=== PATIENT | female | born 1965 | race African-American/Black ===

== ENCOUNTER 2016-05-23 09:09 | Outpatient (CLI) | payer OTHER ==
--- NOTE | 2016-05-23 13:15 | DIAGNOSTIC IMAGING REPORT ---
PROCEDURE: MG BILATERAL SCREENING W/CAD INDICATION: SCREENING. Family history (maternal grandmother) TECHNIQUE: Bilateral CC and MLO digital views. COMPARISON: Mammograms 04/18/2014 and 05/16/2011. FINDINGS: Computer-aided detection applied. Mildly dense pattern. Right upper central breast postsurgical changes with several surgical clips and increasing scarring. Postradiation thickening of the skin. IMPRESSION: 1. Right breast postsurgical and postradiation changes without mammographic evidence of malignancy RESULT CODE: 2- Benign finding(s). A. A negative report should not delay biopsy if a dominant or clinically suspicious mass is present. 10-15% of cancers are not identified by x-ray. B. A negative report may reinforce clinical impression. C. Adenosis and dense breasts may obscure an underlying neoplasm. D. False positive reports average 6-10%. E.. A yearly screening mammogram is recommended. A reminder letter will be scheduled.
== END 2016-05-23 23:00 ==
LOC: MAM SRH 09:09
DX: Z12.31 Encounter for screening mammogram for malignant neoplasm of breast (principal)

== ENCOUNTER 2016-08-21 21:35 | Emergency (ER) | payer OTHER ==
--- NOTE | 2016-08-21 23:51 | DIAGNOSTIC IMAGING REPORT ---
PROCEDURE: XR LUMBAR SPINE 2 OR 3 VIEWS INDICATION: LOWER EXTERMITY TINGLING TECHNIQUE: Three views. COMPARISON: None. FINDINGS: Mild levoscoliosis and straightening of the lumbar spine suggestive of muscular spasm. Mild spur formation and mild narrowing of the L3-4 disc space. No fracture. No suspicious osseous lesions. Soft tissues are unremarkable. IMPRESSION: 1. Mild degenerative changes and L3-4 disc space narrowing 2. Mild levoscoliosis and loss of lordosis suggestive of muscular spasm.
--- NOTE | 2016-08-22 02:06 | ED ORDER SUMMARY ---
..... Patient: FAIZAN PONCE OrderSheet [facility] VisitID: [id number] [place] [address] 51y, F Registration Date/Time: 08/21/2016 ORDER SHEET Weight: 78.9 kg (stated) Allergies: No Known Drug Allergy GENERAL ORDERS: Lumbar Spine 2 or 3V Urgent (22:49 08/21/2016 Kathleen ALBERTO) (Ack 22:50 AMcQuoid ER Tech1) (23:18 MCampbell) UA-Culture if indicated Urgent (01:46 08/22/2016 HSoule per protocol) (Ack 1:53 AMcQuoid ER Tech1) (1:54 AMcQuoid ER Tech1) Urine Urgent (01:46 08/22/2016 HSoule per protocol) (Ack 1:53 AMcQuoid ER Tech1) (1:54 AMcQuoid ER Tech1) MEDICATION ORDERS: Toradol IM 60 mg (NOW) (02:04 08/22/2016 Kathleen ALBERTO) (Ack 2:10 JSanders R.N.) (2:23 JSanders R.N.) Dilaudid IM 1 mg (HIGH ALERT MEDICATION, NOW) (02:04 08/22/2016 Kathleen ALBERTO) (Ack 2:10 JSanders R.N.) (2:17 JSanders R.N.) IV FLUIDS: ORDER SHEET NOTES: [Electronically signed by Jodee Sauer R.N. (02:52 08/22/2016)] [Electronically signed by Mikael Freeman MD (08:35 08/28/2016)] [Electronically locked/signed by Jodee Sauer R.N. (02:52 08/22/2016)]
--- NOTE | 2016-08-22 02:06 | ED ORDER SUMMARY ---
..... Patient: FAIZAN PONCE OrderSheet [facility] VisitID: [id number] [place] [address] 51y, F Registration Date/Time: 08/21/2016 ORDER SHEET Weight: 78.9 kg (stated) Allergies: No Known Drug Allergy GENERAL ORDERS: Lumbar Spine 2 or 3V Urgent (22:49 08/21/2016 Kathleen ALBERTO) (Ack 22:50 AMcQuoid ER Tech1) (23:18 MCampbell) UA-Culture if indicated Urgent (01:46 08/22/2016 HSoule per protocol) (Ack 1:53 AMcQuoid ER Tech1) (1:54 AMcQuoid ER Tech1) Urine Urgent (01:46 08/22/2016 HSoule per protocol) (Ack 1:53 AMcQuoid ER Tech1) (1:54 AMcQuoid ER Tech1) MEDICATION ORDERS: Toradol IM 60 mg (NOW) (02:04 08/22/2016 Kathleen ALBERTO) (Ack 2:10 JSanders R.N.) (2:23 JSanders R.N.) Dilaudid IM 1 mg (HIGH ALERT MEDICATION, NOW) (02:04 08/22/2016 Kathleen ALBERTO) (Ack 2:10 JSanders R.N.) (2:17 JSanders R.N.) IV FLUIDS: ORDER SHEET NOTES: [Electronically signed by Jodee Sauer R.N. (02:52 08/22/2016)] [Electronically signed by Mikael Freeman MD (08:35 08/28/2016)] [Electronically locked/signed by Jodee Sauer R.N. (02:52 08/22/2016)]
--- NOTE | 2016-08-22 02:06 | ED NURSING NOTES ---
Clinical Report - Nurses [facility] [place] [address] 08/21/2016 21:36 Patient: FAIZAN PONCE TRIAGE Triage time 21:53 Aug 21 2016. Acuity: LEVEL 4. Chief Complaint: BACK PAIN and (Right flank pain). 22:02 08/21/16. SEPSIS SCREEN: Sepsis Screen. Negative (no infection suspected/documented). [place]LEY COMA SCORE: [place] Coma Scale: 15- eyes open spontaneously (4); best verbal response- oriented x 4 (5); best motor response- obeys commands (6). --22:02 Jodee Sauer R.N. 21:53 08/21/16. BP: 137/89 (regular adult cuff) taken on the left arm. HR: 89. RR: 18. O2 saturation: 99% on room air. Temp: 97.9 F (oral). Pain level now: 10/06. Additional comments: with movement 01/06. --22:02 Jodee Sauer R.N. 22:04 08/21/16. --22:04 Jodee Sauer R.N. Weight: 78.9 kg stated. Height/Length: 67 inches Per Patient. BMI: 27.3. --21:58 Jodee Sauer R.N. Medications BuPROPion HCl Oral 150 mg, 2x a day. --21:56 Jodee Sauer R.N. Cyclobenzaprine HCl Oral (Tablet 10 mg) 1/2 tablet, as needed. --21:57 Jodee Sauer R.N. Allergies No Known Drug Allergy. --21:57 Jodee Sauer R.N. History Arrived by private vehicle. Historian: patient. Accompanied by family. Primary physician (Dr Ruvalcaba). This started today. She has had numbness (radiating down right leg). She has had tingling, (down right leg). She has had trouble walking. No history of recent trauma. Occurred at home. Treatment SAMPLER RADIOACTIVE WASTE: (Cyclobenzaprine at 1900). PAST MEDICAL HX: Last normal menstrual period- 2002. SOCIAL HX: Never smoker. Occasional alcohol use; consumes wine. No drug use. No infectious disease exposure. ABUSE ASSESSMENT: No report of abuse. --22:02 Jodee Sauer R.N. ( Patient has a disabled daughter, she says she was making her daughters bed and she "tweeked" her back). --22:04 Jodee Sauer R.N. PROBLEMS: Fibromyalgia. Depression. Breast Cancer. --21:57 Jodee Sauer R.N. ADDITIONAL SURGERIES: Appendectomy. . Hysterectomy. Knee Surgery. Lumpectomy of breast. --21:58 Jodee Sauer R.N. Interventions ID band on patient. To treatment room. --22:02 Jodee Sauer R.N. PHYSICAL ASSESSMENT 22:03 08/21/16. To room via wheelchair. GENERAL / NEURO / PSYCH: Alert. Oriented X 4. Appears in no acute distress. RESPIRATORY: Respirations not labored. Chest nontender. Breath sounds within normal limits. CVS: Normal heart rate and rhythm. Capillary refill less than 2 seconds. GI / : Abdomen soft and nontender. Bowel sounds within normal limits. BACK: Normal inspection of the neck and back. Limited ROM of the back. --22:03 Jodee Sauer R.N. NURSING PROGRESS NOTES 22:08/21/16. The plan of care for this patient has been created. Head of bed elevated. Reassurance given. Two patient identifiers checked. Call light placed in reach. Side rails up x 2. Bed placed in lowest position. Brakes of bed on. Patient ready for evaluation- chart flagged and ED physician notified. --22:04 Jodee Sauer R.N. Patient transported to radiology by wheelchair with tech. (23:Aug 21 2016). --23:01 Jodee Sauer R.N. ( at bedside). --00:03 Jodee Sauer R.N. 00:03 08/22/16. BP: 136/79 (regular adult cuff) taken on the left arm. HR: 86. RR: 18. O2 saturation: 98% on room air. Pain level now: 10/06. --00:03 Jodee Sauer R.N. 00:03 08/22/16. ( Patient given warm blanket for comfort measures). --00:03 Jodee Sauer R.N. ( Patient up to restroom.). --00:59 Jodee Sauer R.N. 01:08/22/16. BP: 130/81 (regular adult cuff) taken on the left arm. HR: 83. RR: 18. O2 saturation: 99% on room air. Pain level now: 10/06. --01:28 Jodee Sauer R.N. 01:28 08/22/16. ( Patient still has pain, she is anxious to leave because they have a disabled daughter at home, they are afraid that she will wake up without them there and the caregiver will have a hard time with her. Physician notified). --01:28 Jodee Sauer R.N. 02:17 08/22/2016 Dilaudid (HYDROmorphone HCl PF) IM 1 mg given. Given in the left deltoid. Allergies verified, confirmed 5 rights and sedative warning given to the patient. --02:17 Jodee Sauer R.N. 02:23 08/22/2016 Toradol (Ketorolac Tromethamine) IM 60 mg given. Given in the left anterior lateral thigh. Allergies verified and confirmed 5 rights. --02:23 Jodee Sauer R.N. DISPOSITION / DISCHARGE 02:40 08/22/2016 Dilaudid IM Response: pain is improving. Symptoms have improved the patient feels better. --02:50 Jodee Sauer R.N. 02:40 08/22/2016 Toradol IM Response: no adverse reaction pain is improving. Symptoms have improved the patient feels better. --02:50 Jodee Sauer R.N. 02:52 08/22/16. Departure time: 02:45 Aug 22 2016. Condition at departure: improved. No learning barriers present. Discharge instructions provided and reviewed with the patient. Reviewed medication(s) side effects, precautions and dosing information. Prescription(s) given to the patient. Activity restrictions (light lifting, minimal use of injured extremity, no driving and rest) reviewed. Patient verbalized understanding. Written instructions provided in Yoruba. The patient was discharged by the physician. She was discharged home and accompanied by spouse. She left the Emergency Department in a wheelchair and via private vehicle. Spouse driving. --02:52 Jodee Sauer R.N. 02:49 08/22/16. BP: 145/90 (regular adult cuff) taken on the left arm. HR: 87. RR: 18 (regular and labored). O2 saturation: 99% on room air. Temp: 97.6 F (oral). Pain level now: 09/06. --02:52 Jodee Sauer R.N. Locked/Released at 08/22/2016 2:52 by Jodee Sauer R.N.
--- NOTE | 2016-08-22 02:06 | ED NURSING NOTES ---
Clinical Report - Nurses [facility] [place] [address] 08/21/2016 21:36 Patient: FAIZAN PONCE TRIAGE Triage time 21:53 Aug 21 2016. Acuity: LEVEL 4. Chief Complaint: BACK PAIN and (Right flank pain). 22:02 08/21/16. SEPSIS SCREEN: Sepsis Screen. Negative (no infection suspected/documented). PRESLEY COMA SCORE: [place] Coma Scale: 15- eyes open spontaneously (4); best verbal response- oriented x 4 (5); best motor response- obeys commands (6). --22:02 oJdee Sauer R.N. 21:53 08/21/16. BP: 137/89 (regular adult cuff) taken on the left arm. HR: 89. RR: 18. O2 saturation: 99% on room air. Temp: 97.9 F (oral). Pain level now: 10/06. Additional comments: with movement 01/06. --22:02 Jodee Sauer R.N. 22:04 08/21/16. --22:04 Jodee Sauer R.N. Weight: 78.9 kg stated. Height/Length: 67 inches Per Patient. BMI: 27.3. --21:58 Jodee Sauer R.N. Medications BuPROPion HCl Oral 150 mg, 2x a day. --21:56 Jodee Sauer R.N. Cyclobenzaprine HCl Oral (Tablet 10 mg) 1/2 tablet, as needed. --21:57 Jodee Suaer R.N. Allergies No Known Drug Allergy. --21:57 Jodee Sauer R.N. History Arrived by private vehicle. Historian: patient. Accompanied by family. Primary physician (Dr Ruvalcaba). This started today. She has had numbness (radiating down right leg). She has had tingling, (down right leg). She has had trouble walking. No history of recent trauma. Occurred at home. Treatment BAIL AGENT: (Cyclobenzaprine at 1900). PAST MEDICAL HX: Last normal menstrual period- 2002. SOCIAL HX: Never smoker. Occasional alcohol use; consumes wine. No drug use. No infectious disease exposure. ABUSE ASSESSMENT: No report of abuse. --22:02 Jodee Sauer R.N. ( Patient has a disabled daughter, she says she was making her daughters bed and she "tweeked" her back). --22:04 Jodee Sauer R.N. PROBLEMS: Fibromyalgia. Depression. Breast Cancer. --21:57 Jodee Sauer R.N. ADDITIONAL SURGERIES: Appendectomy. . Hysterectomy. Knee Surgery. Lumpectomy of breast. --21:58 Jodee Sauer R.N. Interventions ID band on patient. To treatment room. --22:02 Jodee Sauer R.N. PHYSICAL ASSESSMENT 22:03 08/21/16. To room via wheelchair. GENERAL / NEURO / PSYCH: Alert. Oriented X 4. Appears in no acute distress. RESPIRATORY: Respirations not labored. Chest nontender. Breath sounds within normal limits. CVS: Normal heart rate and rhythm. Capillary refill less than 2 seconds. GI / : Abdomen soft and nontender. Bowel sounds within normal limits. BACK: Normal inspection of the neck and back. Limited ROM of the back. --22:03 Jodee Sauer R.N. NURSING PROGRESS NOTES 22:08/21/16. The plan of care for this patient has been created. Head of bed elevated. Reassurance given. Two patient identifiers checked. Call light placed in reach. Side rails up x 2. Bed placed in lowest position. Brakes of bed on. Patient ready for evaluation- chart flagged and ED physician notified. --22:04 Jodee Sauer R.N. Patient transported to radiology by wheelchair with tech. (23:Aug 21 2016). --23:01 Jodee Sauer R.N. ( at bedside). --00:03 Jodee Sauer R.N. 00:03 08/22/16. BP: 136/79 (regular adult cuff) taken on the left arm. HR: 86. RR: 18. O2 saturation: 98% on room air. Pain level now: 10/06. --00:03 Jodee Sauer R.N. 00:03 08/22/16. ( Patient given warm blanket for comfort measures). --00:03 Jodee Sauer R.N. ( Patient up to restroom.). --00:59 Jodee Sauer R.N. 01:08/22/16. BP: 130/81 (regular adult cuff) taken on the left arm. HR: 83. RR: 18. O2 saturation: 99% on room air. Pain level now: 10/06. --01:28 Jodee Sauer R.N. 01:28 08/22/16. ( Patient still has pain, she is anxious to leave because they have a disabled daughter at home, they are afraid that she will wake up without them there and the caregiver will have a hard time with her. Physician notified). --01:28 Jodee Sauer R.N. 02:17 08/22/2016 Dilaudid (HYDROmorphone HCl PF) IM 1 mg given. Given in the left deltoid. Allergies verified, confirmed 5 rights and sedative warning given to the patient. --02:17 Jodee Sauer R.N. 02:23 08/22/2016 Toradol (Ketorolac Tromethamine) IM 60 mg given. Given in the left anterior lateral thigh. Allergies verified and confirmed 5 rights. --02:23 Jodee Sauer R.N. DISPOSITION / DISCHARGE 02:40 08/22/2016 Dilaudid IM Response: pain is improving. Symptoms have improved the patient feels better. --02:50 Jodee Sauer R.N. 02:40 08/22/2016 Toradol IM Response: no adverse reaction pain is improving. Symptoms have improved the patient feels better. --02:50 Jodee Sauer R.N. 02:52 08/22/16. Departure time: 02:45 Aug 22 2016. Condition at departure: improved. No learning barriers present. Discharge instructions provided and reviewed with the patient. Reviewed medication(s) side effects, precautions and dosing information. Prescription(s) given to the patient. Activity restrictions (light lifting, minimal use of injured extremity, no driving and rest) reviewed. Patient verbalized understanding. Written instructions provided in Slovak. The patient was discharged by the physician. She was discharged home and accompanied by spouse. She left the Emergency Department in a wheelchair and via private vehicle. Spouse driving. --02:52 Jodee Sauer R.N. 02:49 08/22/16. BP: 145/90 (regular adult cuff) taken on the left arm. HR: 87. RR: 18 (regular and labored). O2 saturation: 99% on room air. Temp: 97.6 F (oral). Pain level now: 09/06. --02:52 Jodee Sauer R.N. Locked/Released at 08/22/2016 2:52 by Jodee Sauer R.N.
--- NOTE | 2016-08-22 02:06 | ED CLINICAL REPORT ---
Clinical Report - Physicians/Mid Levels [facility] [address] [place] [address] 08/21/2016 21:36 Patient: FAIZAN PONCE Time Seen: 22:34. Arrived- By private vehicle. Historian- patient. HISTORY OF PRESENT ILLNESS Chief Complaint: BACK PAIN. It is described as being severe and in the area of the lower lumbar spine and radiating to the right lower extremity. The quality is noted to be aching and "pain". Onset was yesterday and it is still present. It was abrupt in onset and has been constant. No bladder dysfunction, bowel dysfunction, sensory loss or motor loss. Patient notes the possibility of an injury. Mechanism of injury- (he has a disabled daughter. She may have injured her back while assisting her child in bed.). No other injury. REVIEW OF SYSTEMS No chills, fever, sweats, calf pain or chest pain. No cough, difficulty breathing, pedal edema, palpitations or abdominal pain. No constipation, diarrhea, nausea, vomiting or urinary problems. All systems otherwise negative, except as recorded above. PAST HISTORY Problems: Crush Injury, Lower Extremity. Lymphedema. Fibromyalgia. Depression. Breast Cancer. Additional Surgeries: Appendectomy. . Hysterectomy. Knee Surgery. Lumpectomy of breast. Medications: Cyclobenzaprine HCl Oral (Tablet 10 mg) 1/2 tablet, as needed. BuPROPion HCl Oral 150 mg, 2x a day. Allergies: No Known Drug Allergy. SOCIAL HISTORY Never smoker. Occasional alcohol use; consumes wine by the glass. No drug use. FAMILY HISTORY No significant family medical history. ADDITIONAL NOTES The nursing notes have been reviewed. PHYSICAL EXAM Vital Signs: 08/21/2016 21:53 BP: 137/89. HR: 89. RR: 18. O2 saturation: 99%. Temp: 97.9 F. Pain level now: 7/10. Have been reviewed. Appearance: Alert. ENT: Pharynx normal. Neck: Normal inspection. Painless ROM. CVS: Heart sounds normal. Respiratory: No respiratory distress. Breath sounds normal. Abdomen: No visible injury. Soft and nontender. Bowel sounds normal. No organomegaly. No mass. Back: Severely limited ROM in the back- in the lumbar spine: decreased flexion, extension, right lateral bending, left lateral bending and rotation to the right and left. Skin: Skin warm and dry. Normal skin color. Normal skin turgor. Extremities: Extremities exhibit normal ROM. No calf tenderness. Neuro: No motor deficit. No sensory deficit. LABS, X-RAYS, AND EKG LS-Spine X-rays: (IMPRESSION: 1. Mild degenerative changes and L3-4 disc space narrowing 2. Mild levoscoliosis and loss of lordosis suggestive of muscular spasm.). The X-rays were interpreted by the radiologist and contemporaneously by me. PROGRESS AND PROCEDURES Course of Care: Patient is stable. Patient/family counseled. Old medical records reviewed. Disposition: Discharged. Condition: stable. CLINICAL IMPRESSION Acute lumbar back pain associated with muscle strain. Acute right sided sciatica. INSTRUCTIONS Apply ice for 20 minutes four times a day until better. Don't apply ice directly to skin and don't use while asleep. No driving or operating machinery while taking medication. Sedative medication was given during your visit. No lifting greater than 5 lbs, no bending or stooping or no prolonged sitting. No strenuous activity. Warnings: GENERAL WARNINGS: Return or contact your physician immediately if your condition worsens or changes unexpectedly, if not improving as expected, or if other problems arise. Prescription Medications: Hydrocodone/APAP 5mg/325mg: take 1 to 2 orally every 6 hours as needed for pain. Dispense fifteen (15). No refills. Understanding of the discharge instructions verbalized by patient. Follow-up with: Jose Juan Oshea MD, [facility][1], , [facility], [address] [place] [address] Follow up today. Call for the next available appointment. (Electronically signed by Mikael Freeman MD 08/28/2016 8:35)
--- NOTE | 2016-08-22 02:06 | ED CLINICAL REPORT ---
Clinical Report - Physicians/Mid Levels [facility] [address] [place] [address] 08/21/2016 21:36 Patient: FAIZAN PONCE Time Seen: 22:34. Arrived- By private vehicle. Historian- patient. HISTORY OF PRESENT ILLNESS Chief Complaint: BACK PAIN. It is described as being severe and in the area of the lower lumbar spine and radiating to the right lower extremity. The quality is noted to be aching and "pain". Onset was yesterday and it is still present. It was abrupt in onset and has been constant. No bladder dysfunction, bowel dysfunction, sensory loss or motor loss. Patient notes the possibility of an injury. Mechanism of injury- (he has a disabled daughter. She may have injured her back while assisting her child in bed.). No other injury. REVIEW OF SYSTEMS No chills, fever, sweats, calf pain or chest pain. No cough, difficulty breathing, pedal edema, palpitations or abdominal pain. No constipation, diarrhea, nausea, vomiting or urinary problems. All systems otherwise negative, except as recorded above. PAST HISTORY Problems: Crush Injury, Lower Extremity. Lymphedema. Fibromyalgia. Depression. Breast Cancer. Additional Surgeries: Appendectomy. . Hysterectomy. Knee Surgery. Lumpectomy of breast. Medications: Cyclobenzaprine HCl Oral (Tablet 10 mg) 1/2 tablet, as needed. BuPROPion HCl Oral 150 mg, 2x a day. Allergies: No Known Drug Allergy. SOCIAL HISTORY Never smoker. Occasional alcohol use; consumes wine by the glass. No drug use. FAMILY HISTORY No significant family medical history. ADDITIONAL NOTES The nursing notes have been reviewed. PHYSICAL EXAM Vital Signs: 08/21/2016 21:53 BP: 137/89. HR: 89. RR: 18. O2 saturation: 99%. Temp: 97.9 F. Pain level now: 7/10. Have been reviewed. Appearance: Alert. ENT: Pharynx normal. Neck: Normal inspection. Painless ROM. CVS: Heart sounds normal. Respiratory: No respiratory distress. Breath sounds normal. Abdomen: No visible injury. Soft and nontender. Bowel sounds normal. No organomegaly. No mass. Back: Severely limited ROM in the back- in the lumbar spine: decreased flexion, extension, right lateral bending, left lateral bending and rotation to the right and left. Skin: Skin warm and dry. Normal skin color. Normal skin turgor. Extremities: Extremities exhibit normal ROM. No calf tenderness. Neuro: No motor deficit. No sensory deficit. LABS, X-RAYS, AND EKG LS-Spine X-rays: (IMPRESSION: 1. Mild degenerative changes and L3-4 disc space narrowing 2. Mild levoscoliosis and loss of lordosis suggestive of muscular spasm.). The X-rays were interpreted by the radiologist and contemporaneously by me. PROGRESS AND PROCEDURES Course of Care: Patient is stable. Patient/family counseled. Old medical records reviewed. Disposition: Discharged. Condition: stable. CLINICAL IMPRESSION Acute lumbar back pain associated with muscle strain. Acute right sided sciatica. INSTRUCTIONS Apply ice for 20 minutes four times a day until better. Don't apply ice directly to skin and don't use while asleep. No driving or operating machinery while taking medication. Sedative medication was given during your visit. No lifting greater than 5 lbs, no bending or stooping or no prolonged sitting. No strenuous activity. Warnings: GENERAL WARNINGS: Return or contact your physician immediately if your condition worsens or changes unexpectedly, if not improving as expected, or if other problems arise. Prescription Medications: Hydrocodone/APAP 5mg/325mg: take 1 to 2 orally every 6 hours as needed for pain. Dispense fifteen (15). No refills. Understanding of the discharge instructions verbalized by patient. Follow-up with: Jose Juan Oshea MD, [facility], , [facility], [address] [place] [address] Follow up today. Call for the next available appointment. (Electronically signed by Mikael Freeman MD 08/28/2016 8:35)
--- NOTE | 2016-08-28 08:35 | ED MAR SUMMARY ---
..... Medication Administration Record [facility] [address] [place] [address] Patient: FAIZAN PONCE Visit ID: [id number] 51y, F Weight: 78.9 kg Height/Length: 67 in BMI: 27.3 ALLERGIES: No Known Drug Allergy Given 02:17 08/22/2016 Jodee Sauer RHarpreet Medication Administered: DILAUDID [IM] (HYDROMORPHONE HCL PF), Dose: 1 mg IM. Medication Ordered: Dilaudid IM 1 mg (HIGH ALERT MEDICATION, NOW). Given 02:23 08/22/2016 Jodee Sauer RJesusN. Medication Administered: TORADOL [IM] (KETOROLAC TROMETHAMINE), Dose: 60 mg IM. Medication Ordered: Toradol IM 60 mg (NOW).
--- NOTE | 2016-08-28 08:35 | ED MED RECONCILIATION SUMMARY ---
Patient: FAIZAN PONCE Medication Reconciliation Report [facility] VisitID: [id number] [address] [place] [address] 51y, F Registration Date/Time: 08/21/2016 Weight: 78.9 kg Height/Length: 67 in. BMI: 27.3 ALLERGIES: No Known Drug Allergy The patient's Home Medications are listed below: THE FOLLOWING MEDICATIONS NEED TO BE RECONCILED: BuPROPion HCl Oral 150 mg, 2x a day Cyclobenzaprine HCl Oral (10 mg) 1/2 tablet The source(s) of the original Home Medication information: Not obtained. The following Medications were given to the patient in the Emergency Department: Dilaudid [IM] IM 1 mg, administered: 08/22/2016 2:17:00 AM Toradol [IM] IM 60 mg, administered: 08/22/2016 2:23:00 AM The following Medications were prescribed to the patient: Hydrocodone/APAP 5mg/325mg: take 1 to 2 orally every 6 hours as needed for pain. Dispense fifteen (15). No refills. -- Mikael Freeman MD
--- NOTE | 2016-08-28 08:35 | ED DISCHARGE INSTRUCTIONS ---
Patient: FAIZAN PONCE General Instructions [facility] VisitID: [id number] [place] [address] 51y, F Registration Date/Time: 08/21/2016 Acute lumbar back pain associated with muscle strain. Acute right sided sciatica. INSTRUCTIONS Apply ice for 20 minutes four times a day until better. Don't apply ice directly to skin and don't use while asleep. No driving or operating machinery while taking medication. Sedative medication was given during your visit. No lifting greater than 5 lbs, no bending or stooping or no prolonged sitting. No strenuous activity. Warnings: GENERAL WARNINGS: Return or contact your physician immediately if your condition worsens or changes unexpectedly, if not improving as expected, or if other problems arise. Prescription Medications: Hydrocodone/APAP 5mg/325mg: take 1 to 2 orally every 6 hours as needed for pain. Dispense fifteen (15). No refills. Understanding of the discharge instructions verbalized by patient. Follow-up with: Jose Juan Oshea MD, [facility], , [facility], [address] [place] [address] Follow up today. Call for the next available appointment. ADDITIONAL INFORMATION Sciatica Sciatica ("Lumbar Radiculopathy") causes a pain that spreads from the lower back down into the buttock, hip and leg. Sometimes leg pain can occur without any back pain. Sciatica is due to irritation or pressure on a spinal nerve as it comes out of the spinal canal. This is most often due to a bulge or rupture of a nearby spinal disk (the cartilage cushion between each spinal bone), which presses on a nearby nerve. Other causes include spinal stenosis (narrowing of the spinal canal) and spasm of the pyriform muscle (a muscle in the buttocks that the sciatic nerve passes through). Sciatica may begin after a sudden twisting/bending force (such as in a car accident), or sometimes after a simple awkward movement. In either case, muscle spasm is commonly present and contributes to the pain. The diagnosis of sciatica is made from the symptoms and physical exam. Unless you had a physical injury (such as a car accident or fall), X-rays are usually not ordered for the initial evaluation of sciatica because the nerves and disks cannot be seen on an x-ray. If signs of a compressed nerve are present (for example, loss of tendon reflex or strength in the leg), an MRI (magnetic resonance imaging) scan will need to be scheduled as an outpatient. Most sciatica (80-90%) gets better with medicine, exercise, physical therapy. If symptoms continue after at least three months of medical treatment, surgery may be considered. Home Care: You may need to stay in bed the first few days. But, as soon as possible, begin sitting or walking to avoid problems with prolonged bed rest. When in bed, try to find a position of comfort. A firm mattress is best. Try lying flat on your back with pillows under your knees. You can also try lying on your side with your knees bent up towards your chest and a pillow between your knees. Avoid prolonged sitting. This puts more stress on the lower back than standing or walking. Some persons find relief with heat (hot shower, hot bath or heating pad) and massage, while others prefer cold packs (crushed or cubed ice in a plastic bag, wrapped in a towel). Try both and use the method that feels best for 20 minutes several times a day. You may use acetaminophen (Tylenol) or ibuprofen (Motrin, Advil) to control pain, unless another pain medicine was prescribed. [ NOTE: If you have chronic liver or kidney disease or ever had a stomach ulcer or GI bleeding, talk with your doctor before using these medicines.] Be aware of safe lifting methods and do not lift anything over 15 pounds until all the pain is gone. Follow Up with your doctor or this facility if your symptoms do not start to improve after one week. Physical therapy or further testing may be needed. [NOTE: If X-rays were taken, they will be reviewed by a radiologist. You will be notified of any new findings that may affect your care.] Get Prompt Medical Attention if any of the following occur: Pain becomes worse, not controlled by the prescribed medicine Weakness or numbness in one or both legs Numbness in the groin, genital area Loss of bowel or bladder control Hydrocodone Bitartrate, Acetaminophen Oral tablet What is this medicine? ACETAMINOPHEN; HYDROCODONE (a set a JOSE ALFREDO micth fen; mario droe KOE done) is a pain reliever. It is used to treat mild to moderate pain. How should I use this medicine? Take this medicine by mouth. Swallow it with a full glass of water. Follow the directions on the prescription label. If the medicine upsets your stomach, take the medicine with food or milk. Do not take more than you are told to take. Talk to your machine feeder raw stock regarding the use of this medicine in children. This medicine is not approved for use in children. What side effects may I notice from receiving this medicine? Side effects that you should report to your doctor or health college and career counselor as soon as possible: allergic reactions like skin rash, itching or hives, swelling of the face, lips, or tongue breathing problems confusion feeling faint or lightheaded, falls stomach pain yellowing of the eyes or skin Side effects that usually do not require medical attention (report to your doctor or health college and career counselor if they continue or are bothersome): nausea, vomiting stomach upset What may interact with this medicine? alcohol antihistamines isoniazid medicines for depression, anxiety, or psychotic disturbances medicines for sleep muscle relaxants naltrexone narcotic medicines (opiates) for pain phenobarbital ritonavir tramadol What if I miss a dose? If you miss a dose, take it as soon as you can. If it is almost time for your next dose, take only that dose. Do not take double or extra doses. Where should I keep my medicine? Keep out of the reach of children. This medicine can be abused. Keep your medicine in a safe place to protect it from theft. Do not share this medicine with anyone. Selling or giving away this medicine is dangerous and against the law. Store at room temperature between 15 and 30 degrees C (59 and 86 degrees F). Protect from light. Keep container tightly closed. Throw away any unused medicine after the expiration date. Discard unused medicine and used packaging carefully. Pets and children can be harmed if they find used or lost packages. What should I tell my health care provider before I take this medicine? They need to know if you have any of these conditions: brain tumor Crohn's disease, inflammatory bowel disease, or ulcerative colitis drink more than 3 alcohol-containing drinks per day drug abuse or addiction head injury heart or circulation problems kidney disease or problems going to the bathroom liver disease lung disease, asthma, or breathing problems an unusual or allergic reaction to acetaminophen, hydrocodone, other opioid analgesics, other medicines, foods, dyes, or preservatives or trying to get breast-feeding What should I watch for while using this medicine? Tell your doctor or health college and career counselor if your pain does not go away, if it gets worse, or if you have new or a different type of pain. You may develop tolerance to the medicine. Tolerance means that you will need a higher dose of the medicine for pain relief. Tolerance is normal and is expected if you take the medicine for a long time. Do not suddenly stop taking your medicine because you may develop a severe reaction. Your body becomes used to the medicine. This does NOT mean you are addicted. Addiction is a behavior related to getting and using a drug for a non-medical reason. If you have pain, you have a medical reason to take pain medicine. Your doctor will tell you how much medicine to take. If your doctor wants you to stop the medicine, the dose will be slowly lowered over time to avoid any side effects. You may get drowsy or dizzy when you first start taking the medicine or change doses. Do not drive, use machinery, or do anything that may be dangerous until you know how the medicine affects you. Stand or sit up slowly. There are different types of narcotic medicines (opiates) for pain. If you take more than one type at the same time, you may have more side effects. Give your health care provider a list of all medicines you use. Your doctor will tell you how much medicine to take. Do not take more medicine than directed. Call emergency for help if you have problems breathing. The medicine will cause constipation. Try to have a bowel movement at least every 2 to 3 days. If you do not have a bowel movement for 3 days, call your doctor or health college and career counselor. Too much acetaminophen can be very dangerous. Do not take Tylenol (acetaminophen) or medicines that contain acetaminophen with this medicine. Many non-prescription medicines contain acetaminophen. Always read the labels carefully. You have been given the following additional information: Back Pain W/ Sciatica Hydrocodone Bitartrate, Acetaminophen Oral tablet No driving or operating machinery while taking medication. Sedative medication was given during your visit. No lifting greater than 5 lbs, no bending or stooping or no prolonged sitting. No strenuous activity. (Electronically signed by Mikael Freeman MD 08/28/2016 8:35)
--- NOTE | 2016-08-28 08:35 | ED DISCHARGE INSTRUCTIONS ---
Patient: FAIZAN PONCE General Instructions [facility] VisitID: [id number] [place] [address] 51y, F Registration Date/Time: 08/21/2016 Acute lumbar back pain associated with muscle strain. Acute right sided sciatica. INSTRUCTIONS Apply ice for 20 minutes four times a day until better. Don't apply ice directly to skin and don't use while asleep. No driving or operating machinery while taking medication. Sedative medication was given during your visit. No lifting greater than 5 lbs, no bending or stooping or no prolonged sitting. No strenuous activity. Warnings: GENERAL WARNINGS: Return or contact your physician immediately if your condition worsens or changes unexpectedly, if not improving as expected, or if other problems arise. Prescription Medications: Hydrocodone/APAP 5mg/325mg: take 1 to 2 orally every 6 hours as needed for pain. Dispense fifteen (15). No refills. Understanding of the discharge instructions verbalized by patient. Follow-up with: Jose Juan Oshea MD, [facility], , [facility], [address] [place] [address] Follow up today. Call for the next available appointment. ADDITIONAL INFORMATION Sciatica Sciatica ("Lumbar Radiculopathy") causes a pain that spreads from the lower back down into the buttock, hip and leg. Sometimes leg pain can occur without any back pain. Sciatica is due to irritation or pressure on a spinal nerve as it comes out of the spinal canal. This is most often due to a bulge or rupture of a nearby spinal disk (the cartilage cushion between each spinal bone), which presses on a nearby nerve. Other causes include spinal stenosis (narrowing of the spinal canal) and spasm of the pyriform muscle (a muscle in the buttocks that the sciatic nerve passes through). Sciatica may begin after a sudden twisting/bending force (such as in a car accident), or sometimes after a simple awkward movement. In either case, muscle spasm is commonly present and contributes to the pain. The diagnosis of sciatica is made from the symptoms and physical exam. Unless you had a physical injury (such as a car accident or fall), X-rays are usually not ordered for the initial evaluation of sciatica because the nerves and disks cannot be seen on an x-ray. If signs of a compressed nerve are present (for example, loss of tendon reflex or strength in the leg), an MRI (magnetic resonance imaging) scan will need to be scheduled as an outpatient. Most sciatica (80-90%) gets better with medicine, exercise, physical therapy. If symptoms continue after at least three months of medical treatment, surgery may be considered. Home Care: You may need to stay in bed the first few days. But, as soon as possible, begin sitting or walking to avoid problems with prolonged bed rest. When in bed, try to find a position of comfort. A firm mattress is best. Try lying flat on your back with pillows under your knees. You can also try lying on your side with your knees bent up towards your chest and a pillow between your knees. Avoid prolonged sitting. This puts more stress on the lower back than standing or walking. Some persons find relief with heat (hot shower, hot bath or heating pad) and massage, while others prefer cold packs (crushed or cubed ice in a plastic bag, wrapped in a towel). Try both and use the method that feels best for 20 minutes several times a day. You may use acetaminophen (Tylenol) or ibuprofen (Motrin, Advil) to control pain, unless another pain medicine was prescribed. [ NOTE: If you have chronic liver or kidney disease or ever had a stomach ulcer or GI bleeding, talk with your doctor before using these medicines.] Be aware of safe lifting methods and do not lift anything over 15 pounds until all the pain is gone. Follow Up with your doctor or this facility if your symptoms do not start to improve after one week. Physical therapy or further testing may be needed. [NOTE: If X-rays were taken, they will be reviewed by a radiologist. You will be notified of any new findings that may affect your care.] Get Prompt Medical Attention if any of the following occur: Pain becomes worse, not controlled by the prescribed medicine Weakness or numbness in one or both legs Numbness in the groin, genital area Loss of bowel or bladder control Hydrocodone Bitartrate, Acetaminophen Oral tablet What is this medicine? ACETAMINOPHEN; HYDROCODONE (a set a JOSE ALFREDO mitch fen; mario droe KOE done) is a pain reliever. It is used to treat mild to moderate pain. How should I use this medicine? Take this medicine by mouth. Swallow it with a full glass of water. Follow the directions on the prescription label. If the medicine upsets your stomach, take the medicine with food or milk. Do not take more than you are told to take. Talk to your digital asset coordinator regarding the use of this medicine in children. This medicine is not approved for use in children. What side effects may I notice from receiving this medicine? Side effects that you should report to your doctor or health anesthesiologist and critical care as soon as possible: allergic reactions like skin rash, itching or hives, swelling of the face, lips, or tongue breathing problems confusion feeling faint or lightheaded, falls stomach pain yellowing of the eyes or skin Side effects that usually do not require medical attention (report to your doctor or health anesthesiologist and critical care if they continue or are bothersome): nausea, vomiting stomach upset What may interact with this medicine? alcohol antihistamines isoniazid medicines for depression, anxiety, or psychotic disturbances medicines for sleep muscle relaxants naltrexone narcotic medicines (opiates) for pain phenobarbital ritonavir tramadol What if I miss a dose? If you miss a dose, take it as soon as you can. If it is almost time for your next dose, take only that dose. Do not take double or extra doses. Where should I keep my medicine? Keep out of the reach of children. This medicine can be abused. Keep your medicine in a safe place to protect it from theft. Do not share this medicine with anyone. Selling or giving away this medicine is dangerous and against the law. Store at room temperature between 15 and 30 degrees C (59 and 86 degrees F). Protect from light. Keep container tightly closed. Throw away any unused medicine after the expiration date. Discard unused medicine and used packaging carefully. Pets and children can be harmed if they find used or lost packages. What should I tell my health care provider before I take this medicine? They need to know if you have any of these conditions: brain tumor Crohn's disease, inflammatory bowel disease, or ulcerative colitis drink more than 3 alcohol-containing drinks per day drug abuse or addiction head injury heart or circulation problems kidney disease or problems going to the bathroom liver disease lung disease, asthma, or breathing problems an unusual or allergic reaction to acetaminophen, hydrocodone, other opioid analgesics, other medicines, foods, dyes, or preservatives or trying to get breast-feeding What should I watch for while using this medicine? Tell your doctor or health anesthesiologist and critical care if your pain does not go away, if it gets worse, or if you have new or a different type of pain. You may develop tolerance to the medicine. Tolerance means that you will need a higher dose of the medicine for pain relief. Tolerance is normal and is expected if you take the medicine for a long time. Do not suddenly stop taking your medicine because you may develop a severe reaction. Your body becomes used to the medicine. This does NOT mean you are addicted. Addiction is a behavior related to getting and using a drug for a non-medical reason. If you have pain, you have a medical reason to take pain medicine. Your doctor will tell you how much medicine to take. If your doctor wants you to stop the medicine, the dose will be slowly lowered over time to avoid any side effects. You may get drowsy or dizzy when you first start taking the medicine or change doses. Do not drive, use machinery, or do anything that may be dangerous until you know how the medicine affects you. Stand or sit up slowly. There are different types of narcotic medicines (opiates) for pain. If you take more than one type at the same time, you may have more side effects. Give your health care provider a list of all medicines you use. Your doctor will tell you how much medicine to take. Do not take more medicine than directed. Call emergency for help if you have problems breathing. The medicine will cause constipation. Try to have a bowel movement at least every 2 to 3 days. If you do not have a bowel movement for 3 days, call your doctor or health anesthesiologist and critical care. Too much acetaminophen can be very dangerous. Do not take Tylenol (acetaminophen) or medicines that contain acetaminophen with this medicine. Many non-prescription medicines contain acetaminophen. Always read the labels carefully. You have been given the following additional information: Back Pain W/ Sciatica Hydrocodone Bitartrate, Acetaminophen Oral tablet No driving or operating machinery while taking medication. Sedative medication was given during your visit. No lifting greater than 5 lbs, no bending or stooping or no prolonged sitting. No strenuous activity. (Electronically signed by Mikael Freeman MD 08/28/2016 8:35)
--- NOTE | 2016-08-28 08:35 | ED MED RECONCILIATION SUMMARY ---
Patient: FAIZAN PONCE Medication Reconciliation Report [facility] VisitID: [id number] [address] [place] [address] 51y, F Registration Date/Time: 08/21/2016 Weight: 78.9 kg Height/Length: 67 in. BMI: 27.3 ALLERGIES: No Known Drug Allergy The patient's Home Medications are listed below: THE FOLLOWING MEDICATIONS NEED TO BE RECONCILED: BuPROPion HCl Oral 150 mg, 2x a day Cyclobenzaprine HCl Oral (10 mg) 1/2 tablet The source(s) of the original Home Medication information: Not obtained. The following Medications were given to the patient in the Emergency Department: Dilaudid [IM] IM 1 mg, administered: 08/22/2016 2:17:00 AM Toradol [IM] IM 60 mg, administered: 08/22/2016 2:23:00 AM The following Medications were prescribed to the patient: Hydrocodone/APAP 5mg/325mg: take 1 to 2 orally every 6 hours as needed for pain. Dispense fifteen (15). No refills. -- Mikael Freeman MD
--- NOTE | 2016-08-28 08:35 | ED MAR SUMMARY ---
..... Medication Administration Record [facility] [address] [place] [address] Patient: FAIZAN PONCE Visit ID: [id number] 51y, F Weight: 78.9 kg Height/Length: 67 in BMI: 27.3 ALLERGIES: No Known Drug Allergy Given 02:17 08/22/2016 Jodee Sauer RHarpreet Medication Administered: DILAUDID [IM] (HYDROMORPHONE HCL PF), Dose: 1 mg IM. Medication Ordered: Dilaudid IM 1 mg (HIGH ALERT MEDICATION, NOW). Given 02:23 08/22/2016 Jodee Sauer RJesusN. Medication Administered: TORADOL [IM] (KETOROLAC TROMETHAMINE), Dose: 60 mg IM. Medication Ordered: Toradol IM 60 mg (NOW).
== END 2016-08-22 02:45 | disposition home or self-care (01) ==
LOC: ED SRH 21:35
DX: S39.012A Strain of muscle, fascia and tendon of lower back, initial encounter (principal); M54.31 Sciatica, right side; X58.XXXA Exposure to other specified factors, initial encounter
CPT/HCPCS: 90004; 93070